=== PATIENT | female | born 1990 | race Caucasian/White ===

== ENCOUNTER 2022-09-25 06:13 | Emergency (ER) | payer OTHER, SELFPAY ==
[2022-09-25 06:17] VITALS: BP 131/74; PULSE 89; RESP 16; TEMP 36.9; O2SAT 100; BMI 28.3
[2022-09-25 08:32] LABS: MANUAL DIFF FLAG NO
[2022-09-25 08:35] LABS: Basophils Percent Auto 0.3 % (0-2); Eosinophils Absolute Auto 0.1 X10*3/uL (0.0-0.4); Eosinophils Percent Auto 0.6 % (0-4); Hematocrit 37.2 % (37.0-47.0); Hemoglobin 12.7 g/dl (12.0-16.0); Imm Gran Abs Auto 0.08 X10*3/uL (0.00-0.03); Lymphocytes Absolute Auto 2.9 X10*3/uL (1.2-4.9); Lymphocytes Percent Auto 36.1 % (20-40); Mean Corpuscular HGB Conc 34.1 g/dl (31.0-35.0); Mean Corpuscular Hemoglobin 29.2 pg (27.0-33.0); Mean Corpuscular Volume 85.5 fL (80.0-98.0); Mean Platelet Volume 10.3 fL (9.4-12.3); Monocytes Absolute Auto 0.5 X10*3/uL (0.1-1.2); Monocytes Percent Auto 6.3 % (2-11); Neutrophils Absolute Auto 4.4 x10*3/uL (2.0-8.3); Neutrophils Percent Auto 55.7 % (45-73); Platelet Count 211 X10*3/uL (160-400); Red Blood Count 4.35 X10*6/uL (4.20-5.50); Red Cell Distribution Width 12.3 % (11.0-16.0); White Blood Count 7.9 X10*3/uL (4.8-10.8)
[2022-09-25 08:54] LABS: Alanine Aminotransferase 68 U/L (0-31); Albumin Level 3.9 g/dL (3.5-5.0); Alkaline Phosphatase 44 U/L (39-117); Anion Gap 15 (12-20); Aspartate Amino Transferase 32 U/L (5-31); Bilirubin Total 0.2 mg/dL (0.0-1.0); Blood Urea Nitrogen 7 mg/dL (9-16); Calcium 9.5 mg/dL (8.4-10.2); Carbon Dioxide 19 mmol/L (22-29); Chloride 108 mmol/L (96-108); Creatinine Clr Calc Pharmacy 121.8; Estimated Glomerular Filt Rate > 60; Glucose Random 79 mg/dL (60-115); HCG Quantitative 13910 mIU/mL; Potassium 3.8 mmol/L (3.3-5.1); Sodium 138 mmol/L (135-145); Total Protein 6.6 g/dL (6.5-8.0)
--- NOTE | 2022-09-25 08:57 | ED.ABDPAIN ---
HPI - Abdominal Pain General Chief Complaint: Abdominal Pain Stated Complaint: employee; abd pain, preg Time Seen by Provider: 09/25/22 07:28 Source: patient Mode of arrival: ambulatory History of Present Illness HPI narrative: 32-year-old female, currently with twins at stated 13 weeks who was attempting to move a patient that was about ready to follow out of bed and is now complaining left lateral to the umbilical pain, no vaginal discharge or bleeding and no shortness of breath/chest pain. Related Data Allergies Allergy/AdvReac Type Severity Reaction Status Date / Time Unable to Assess Allergy Verified 09/25/22 07:09 Review of Systems Review of Systems Pertinent positives and negatives as stated in HPI 10 point review of systems is otherwise negative. PMFSH Past Medical History Source: nursing notes reviewed Social History Social History Advance Directives: No Advance Directives Information Provided: Yes Physical Exam ED Vital Signs: Vital Signs - 24 hr 09/25/22 06:17 Temperature 98.4 F Pulse Rate 89 Respiratory Rate 16 Blood Pressure 131/74 Pulse Oximetry 100 Oxygen Delivery Method Room Air BMI result Body Mass Index 28.3 VITAL SIGNS: Reviewed. GENERAL: Well developed, well nourished, in no acute distress. HEAD: Normocephalic/atraumatic EYES: PERRLA, EOMI EARS: Ext canals without abnormality OROPHARYNX: no oral lesions noted, posterior pharynx clear LUNGS: Normal breath sounds. No adventitious sounds or accessory muscle use. SpO2<100> CARDIOVASCULAR: Regular rate and rhythm without noted murmurs ABDOMEN: Soft, tenderness at the left lateral aspect of the umbilicus, no rebound, non-distended with bowel sounds. MUSCULOSKELETAL: No tenderness, deformities, or effusions noted on gross inspection. EXTREMITIES: No cyanosis, clubbing or edema. SKIN: Inspection of the skin reveals no rashes NEUROLOGIC: Alert and oriented x 4. Strength and sensation to light touch were grossly intact x 4. Medical Decision Making Medical Decision Making MDM Narrative: 32-year-old female with history and clinical presentation abdominal pain after and event that I feel may have led to a muscle strain, gestation is currently at 13 weeks and care is in [place], [place]. Patient reassured, all results discussed with her at bedside, she is a positive and will not require RhoGAM, as I consult said with prosthodontist/owner you has no further recommendations other than follow-up on Wednesday with her scraper hand. Differential Diagnosis Differential Diagnoses: The differential diagnosis associated with the presentation includes Muscle strain Consult Healthcare Provider Management of the patient was discussed with: Electronic Technologist Dr Preciado(FITTING ROOM OPERATOR): No further interventions recommended at this time other than follow-up on Wednesday with her current scraper hand. Lab Data MDM Lab Attestation statement: I reviewed the patient's lab results. Result Diagrams: 09/25/22 08:26 09/25/22 08:26 Labs: Lab Results 09/25/22 09/25/22 Range/Units 08:26 08:26 WBC 7.9 (4.8-10.8) X10*3/uL RBC 4.35 (4.20-5.50) X10*6/uL Hgb 12.7 (12.0-16.0) g/dl Hct 37.2 (37.0-47.0) % MCV 85.5 (80.0-98.0) fL MCH 29.2 (27.0-33.0) pg MCHC 34.1 (31.0-35.0) g/dl RDW 12.3 (11.0-16.0) % Plt Count 211 (160-400) X10*3/uL MPV 10.3 (9.4-12.3) fL Immature Gran % (Auto) 1.0 H (0.0-0.4) % Neut % (Auto) 55.7 (45-73) % Lymph % (Auto) 36.1 (20-40) % Marin % (Auto) 6.3 (2-11) % Eos % (Auto) 0.6 (0-4) % Baso % (Auto) 0.3 (0-2) % Lymph # (Auto) 2.9 (1.2-4.9) X10*3/uL Marin # (Auto) 0.5 (0.1-1.2) X10*3/uL Eos # (Auto) 0.1 (0.0-0.4) X10*3/uL Baso # (Auto) 0.0 (0.0-0.2) X10*3/uL Abs Immat Gran (auto) 0.08 H (0.00-0.03) X10*3/uL Absolute Neuts (auto) 4.4 (2.0-8.3) x10*3/uL Absolute Nucleated RBC 0.000 (0.0-0.012) X10*3/uL Nucleated RBC % (auto) 0.0 (0.0-0.2) /100WBC Sodium 138 (135-145) mmol/L Potassium 3.8 (3.3-5.1) mmol/L Chloride 108 (96-108) mmol/L Carbon Dioxide 19 L (22-29) mmol/L Anion Gap 15 (12-20) BUN 7 L (9-16) mg/dL Creatinine 0.62 (0.5-1.4) mg/dL Estim Creat Clear Calc 121.8 Estimated GFR > 60 Random Glucose 79 (60-115) mg/dL Calcium 9.5 (8.4-10.2) mg/dL Total Bilirubin 0.2 (0.0-1.0) mg/dL AST 32 H (5-31) U/L ALT 68 H (0-31) U/L Alkaline Phosphatase 44 (39-117) U/L Total Protein 6.6 (6.5-8.0) g/dL Albumin 3.9 (3.5-5.0) g/dL Beta HCG, Quant 20918 mIU/mL Radiology Impression Radiologist Impression: My interpretation agrees with radiology impression ultrasound. Discharge Plan Discharge Clinical Impression: demise due to miscarriage Patient Disposition: Home, Self-Care Instructions: Miscarriage (ED), at 11 to 14 Weeks (ED) Additional Instructions: 1. Continue with vitamins and care. 2. Follow-up with your scraper hand on Wednesday morning. Return to the ER with worsening symptoms.
--- NOTE | 2022-09-25 10:24 | PM.GYNCN ---
PLANT CULTURE MANAGER - CN: HPI Data of Consult Consult date: 09/25/22 Primary Care Provider: None Physician Consult Narrative Narrative: I was consulted Cherry Palacios is a 32 year old female at 13 weeks with twin gestation who was attempting to move a patient that was about ready to follow out of bed, the patient is current complaining of left lateral to the umbilical pain, no vaginal discharge or bleeding and no shortness of breath/chest pain, no vaginal bleeding or discharge or any other concerns cc:: CC[facility] Social History Social History Advance Directives: No Advance Directives Information Provided: Yes Meds Allergies Allergy/AdvReac Type Severity Reaction Status Date / Time Unable to Assess Allergy Verified 09/25/22 07:09 PLANT CULTURE MANAGER Physical Exam Vitals Vital signs: Temp Pulse Resp BP Pulse Ox O2 Del Method 98.4 F 89 16 131/74 100 09/25/22 06:17 09/25/22 06:17 09/25/22 06:17 09/25/22 06:17 09/25/22 06:17 09/25/22 06:17 BMI result Body Mass Index 28.3 Additional Comments: Physical exam reported by Dr. Lacy as the following: Abdomen: soft nontender PLANT CULTURE MANAGER - Results Labs CBC & Chem 7: 09/25/22 08:26 09/25/22 08:26 Labs: Short CBC 09/25/22 Range/Units 08:26 WBC 7.9 (4.8-10.8) X10*3/uL Hgb 12.7 (12.0-16.0) g/dl Hct 37.2 (37.0-47.0) % Plt Count 211 (160-400) X10*3/uL BMP 09/25/22 08:26 Sodium 138 Potassium 3.8 Chloride 108 Carbon Dioxide 19 L BUN 7 L Creatinine 0.62 Calcium 9.5 Liver Function 09/25/22 Range/Units 08:26 Total Bilirubin 0.2 (0.0-1.0) mg/dL AST 32 H (5-31) U/L ALT 68 H (0-31) U/L Alkaline Phosphatase 44 (39-117) U/L Albumin 3.9 (3.5-5.0) g/dL Imaging US - abdomen: Radiologist's impression: ITS Impressions Ultrasound 09/25/22 08:00 IMPRESSION: 1. Previously identified when gestation. Twin A appears viable with an estimated age of 13 weeks. 2. Significantly smaller twin B crown-rump length is seen without cardiac activity consistent with 7 weeks, 2 days gestation. This finding is concerning for demise of twin B. Continued short-term obstetric follow-up, monitoring of beta-hCG level and short-term pelvic ultrasound as clinically indicated is recommended. Ultrasound 09/25/22 08:00 IMPRESSION: 1. Previously identified when gestation. Twin A appears viable with an estimated age of 13 weeks. 2. Significantly smaller twin B crown-rump length is seen without cardiac activity consistent with 7 weeks, 2 days gestation. This finding is concerning for demise of twin B. Continued short-term obstetric follow-up, monitoring of beta-hCG level and short-term pelvic ultrasound as clinically indicated is recommended. Assessment and Plan (1) Twin gestation in first trimester: Status: Acute Plan Recommended the following to Dr. Lacy: SAB warnings to be given to patient, she is to come back to emergency room in case of cramping and or vaginal bleeding in follow-up with her OBGYN in 48 hours. I spent a total of 20 minutes reviewing the chart, communicating with the ER provider and documenting in the medical record Time Spent With Patient Time: Total time managing care of this patient today ____ minutes.
== END 2022-09-25 09:55 | disposition home or self-care (01) ==
PROVIDERS: Emergency Provider Student in an Organized Health Care Education/Training Program
DX: O30.001 Twin pregnancy, unspecified number of placenta and unspecified number of amniotic sacs, first trimester (principal); O26.91 Pregnancy related conditions, unspecified, first trimester; Z3A.13 13 weeks gestation of pregnancy; Z79.899 Other long term (current) drug therapy
CPT/HCPCS: 36415; 76801; 76802; 80053; 84702; 85025; 99282; 99284